=== PATIENT | female | born 1960 | race Caucasian/White ===

== ENCOUNTER 2018-11-19 03:35 | Inpatient (IN) | payer BC ==
--- NOTE | 2018-11-19 03:37 | ED Physician Documentation ---
PD HPI ABD PAIN - Stated complaint Stated Complaint: VOMITING,ABD PAIN - History obtained from History obtained from: Patient, Family - History of Present Illness Timing - onset: Yesterday Timing - details: Gradual onset, Waxing and waning Pain level now: 8 Quality: Pain Location: All over / everywhere Radiation: Other (no radiation) Improved by: Other (no ameliorating factors) Worsened by: Moving, Palpation Associated symptoms: Nausea, Vomiting, Constipation. No: Fever, Diarrhea Similar symptoms before: Other (has had similar episode in the past but resolved without needing medical attention) Recently seen: Not recently seen - Additional information Additional information: c/o generalized abdominal pain since yesterday, waxing and waning but gradually progressing in severity and frequency of episodes and becoming associated with increasing nausea and vomiting. she has not had BM x 2 days (unusual for her). Review of Systems Constitutional: reports: Reviewed and negative Eyes: reports: Reviewed and negative Ears: reports: Reviewed and negative Nose: reports: Reviewed and negative Throat: reports: Reviewed and negative Cardiac: reports: Reviewed and negative Respiratory: reports: Reviewed and negative GI: reports: Abdominal Pain, Nausea, Vomiting, Constipation. denies: Diarrhea : denies: Dysuria, Frequency Skin: reports: Reviewed and negative Musculoskeletal: reports: Reviewed and negative Neurologic: reports: Reviewed and negative PD PAST MEDICAL HISTORY - Past Medical History Past Medical History: Yes Other Past Medical History: colon CA - Past Surgical History Past Surgical History: Yes General: Cholecystectomy, Appendectomy, Bowel surgery, Liver surgery - Present Medications Home Medications: Ambulatory Orders Medication Instructions Recorded Confirmed No Known Home Medications 11/19/18 11/19/18 - Allergies Allergies/Adverse Reactions: Allergies Allergy/AdvReac Type Severity Reaction Status Date / Time No Known Drug Allergies Allergy Verified 11/19/18 03:43 - Living Situation Living Situation: reports: With spouse/s.o. Living Arrangement: reports: At home - Social History Does the pt smoke?: No PD ED PE NORMAL - Vitals Vital signs reviewed: Yes - General General: Alert and oriented X 3, Well developed/nourished, Other (obvious painful distress) - HEENT HEENT: Other (tacky/pasty mucous membranes) - Neck Neck: Supple, no meningeal sign - Cardiac Cardiac: RRR, No murmur - Respiratory Respiratory: No respiratory distress, Clear bilaterally - Abdomen Abdomen: Normal bowel sounds, Soft, Non distended, Other (mild/moderate TTP periumbilical region without rebound or guarding) - Derm Derm: Normal color - Extremities Extremities: No edema Results - Vitals Vitals: Vital Signs - 24 hr 11/19/18 11/19/18 11/19/18 03:41 03:56 04:28 Temperature 36.6 C Heart Rate 76 70 77 Respiratory 18 20 18 Rate Blood Pressure 129/76 139/84 H 143/94 H O2 Saturation 99 94 100 11/19/18 11/19/18 11/19/18 04:40 04:43 04:50 Temperature Heart Rate 74 77 Respiratory 16 16 Rate Blood Pressure 142/84 H O2 Saturation 88 L 100 100 Oxygen O2 Source Nasal cannula - Labs Labs: Laboratory Tests 11/19/18 11/19/18 03:40 03:40 WBC 10.8 RBC 4.95 Hgb 13.8 Hct 42.5 MCV 85.9 MCH 27.9 MCHC 32.5 RDW 13.5 Plt Count 233 MPV 11.0 H Neut # (Auto) 9.4 H Lymph # (Auto) 1.[address] [place] # (Auto) 0.2 Eos # (Auto) 0.0 Baso # (Auto) 0.0 Absolute Nucleated RBC 0.00 Nucleated RBC % 0.0 Sodium 141 Potassium 3.9 Chloride 101 Carbon Dioxide 25 Anion Gap 15.0 H BUN 17 Creatinine 0.9 Estimated GFR (MDRD) 65 L Glucose 207 H Calcium 9.7 Total Bilirubin 1.0 AST 26 ALT 19 Alkaline Phosphatase 57 Total Protein 6.8 Albumin 4.3 Globulin 2.5 Albumin/Globulin Ratio 1.7 Lipase 24 - Rads (name of study) CT A/P Radiology: Prelim report reviewed, See rad report PD MEDICAL DECISION MAKING - ED course Complexity details: reviewed results, considered differential, d/w patient, d/w family ED course: D/W Dr. Andersen, recommends admit to hospitalist service and they can consult surgical service. D/W Dr. Toledo, accpets admission. I discussed this plan with patient and spouse (present in ED at bedside) and they are comfortable with this plan. Departure - Departure Disposition: [facility] DC/Xfer Clinical Impression: Small bowel obstruction Condition: Good Discharge Date/Time: 11/19/18 05:45
[2018-11-19] MEDS ORDERED: SODIUM CHLORIDE 0.9% 1,000 ML IV STA ×2 (03:49→04:30)
[2018-11-19] MEDS ORDERED: ONDANSETRON 4 MG/2 ML VIAL IVP STA ×2 (03:49→05:46)
[2018-11-19] MEDS ORDERED: MORPHINE 2 MG/ML CARPUJECT IVP STA ×2 (03:49→04:08)
[2018-11-19 03:56] LABS: BASOPHILS % (AUTO) 0.4 %; HGB - HEMOGLOBIN 13.8 g/dL (12.0-16.0); LYMPHOCYTES % (AUTO) 9.6 %; MEAN CORPUSCULAR HEMOGLOBIN 27.9 pg (27.0-31.0); MEAN CORPUSCULAR HGB CONC 32.5 g/dL (32.0-36.0); MEAN CORPUSCULAR VOLUME 85.9 fL (81.0-99.0); MONOCYTES # (AUTO) 0.2 10^3/uL (0.0-1.0); MONOCYTES % (AUTO) 2.2 %; NEUTROPHILS # (AUTO) 9.4 10^3/uL (1.5-6.6); NEUTROPHILS % (AUTO) 87.4 %; PLT - PLATELET COUNT 233 10^3/uL (130-450); RED BLOOD COUNT 4.95 10^6/uL (4.20-5.40); RED CELL DISTRIBUTION WIDTH 13.5 % (12.0-15.0); WHITE BLOOD COUNT 10.8 x10^3/uL (4.8-10.8)
[2018-11-19 04:05] LABS: ALBUMIN 4.3 g/dL (3.2-5.5); ALBUMIN/GLOBULIN RATIO 1.7 (1.0-2.2); CALCIUM 9.7 mg/dL (8.5-10.3); CREATININE 0.9 mg/dL (0.4-1.0); TOTAL PROTEIN 6.8 g/dL (6.7-8.2)
[2018-11-19] MEDS ORDERED: IOVERSOL 320 100 ML VIAL IVP ONE ×2 (04:12→04:38)
[2018-11-19] MEDS ORDERED: MORPHINE 2 MG/ML CARPUJECT ONE (04:18)
[2018-11-19] MEDS ORDERED: HYDROmorphone 1 MG/ML CARPUJECT IVP STA (04:30)
--- NOTE | 2018-11-19 04:42 | CT Report ---
Reason: abd. pain Procedure Date: 11/19/2018 Accession Number: [id number] / [id number] Procedure: CT - Abdomen/Pelvis W CPT Code: FULL RESULT: EXAM: CT ABDOMEN AND PELVIS EXAM DATE: 11/19/2018 04:29 AM. CLINICAL HISTORY: Abd. pain. COMPARISONS: None. TECHNIQUE: Routine helical CT imaging was performed through the abdomen and pelvis. IV contrast: OPTI 320 100ML. Enteric contrast: No. Reconstructions: Coronal and sagittal. In accordance with CT protocol optimization, one or more of the following dose reduction techniques were utilized for this exam: automated exposure control, adjustment of mA and/or KV based on patient size, or use of iterative reconstructive technique. FINDINGS: Lung Bases: Unremarkable. Liver: Postoperative changes. No intrahepatic biliary dilatation. Gallbladder/Bile Ducts: Postoperative changes of cholecystectomy. No common duct dilation. Spleen: Normal. Pancreas: Normal. Adrenal Glands: Normal. Kidneys: Normal. No masses or hydronephrosis. Peritoneal Cavity/Bowel: Postoperative changes in the distal colon and small bowel. Dilated mid small bowel loops, with an abrupt transition in the right lower quadrant, suggestive of mechanical obstruction. Pelvic Organs: Small amount of free fluid in the pelvis. No pelvic adenopathy. Vasculature: No aneurysms or other significant abnormality. Bones: No significant abnormality. Other: None. IMPRESSION: Postoperative changes of previous partial liver resection, cholecystectomy, and bowel surgery. Dilated mid small bowel loops, with an abrupt transition in the right lower quadrant, suggestive of mechanical obstruction. Small amount of free fluid in the pelvis. RADIA
--- NOTE | 2018-11-19 05:38 | HISTORY & PHYSICAL EXAMINATION ---
Chief Complaint - Chief Complaint Chief Complaint: diffuse abd pain History of Present Illness - Admitted From Admitted From:: [facility] ED - History Obtained From Records Reviewed: yes History obtained from: patient - History of Present Illness HPI Comment/Other: Patient seen and examined on 11/19/18 at 05:15 am. Patient is a 58 y/o female with history of Stage IV colon cancer with metastasis to the liver 5yr ago s/p surgery, who presented with diffuse abd pain which started yesterday and steadily got worse. She had a protein bar sometime after onset but has since vomited everything. She has not had a bowel movement or passed gas. She denies chest pain or SUSAN. In the ED work up included a CT of the abd/pelvis which showed a SBO with a transition point. As a result she is being admitted for further management. History - Past Medical History Cardiovascular: reports: None Respiratory: reports: None Neuro: reports: None Endocrine/Autoimmune: reports: None GI: reports: Other PILOT SUBMERSIBLE: reports: None : reports: None, Other (colon cancer with mets to liver. s/p resection) HEENT: reports: None Psych: reports: None Musculoskeletal: reports: None Derm: reports: None MRSA Hx?: No - Past Surgical History General: reports: Cholecystectomy, Appendectomy, Bowel surgery (colon mass rection), Liver surgery, Other HEENT: reports: Tonsil/Adenoidectomy - Family & Social History Family History Comment/Other: Patient denied any significant family history Living arrangement: At home Living Situation: With spouse/s.o. Social History Notes: She denied tobacco or illit drug use. Occasionally uses alcohol - POLST Patient has POLST: No POLST Status: Full Code Meds/Allgy - Home Medications Home Medications: Ambulatory Orders Medication Instructions Recorded Confirmed No Known Home Medications 11/19/18 11/19/18 - Allergies Allergies/Adverse Reactions: Allergies Allergy/AdvReac Type Severity Reaction Status Date / Time No Known Drug Allergies Allergy Verified 11/19/18 03:43 Review of Systems - Constitutional Constitutional: reports: Chills, Poor appetite. denies: Fever - Eyes Eyes: denies: Blurred vision, Vision loss, Dipolpia - Ears, Nose & Throat Ears, Nose & Throat: denies: Nasal pain, Nasal discharge, Sore throat, Hoarseness - Cardiovascular Cariovascular: denies: Irregular heart rate, Chest pain, Edema, Lightheadedness, Syncope, Exertional dyspnea - Respiratory Respiratory: denies: Cough, Sputum production, Wheezing, SOB at rest, SOB with exertion - Gastrointestinal Gastrointestinal: reports: Abdominal pain, Nausea, Vomiting, Poor appetite. denies: Abdominal distention, Coffee grounds emesis, Reflux/heartburn - Genitourinary Genitourinary: denies: Dysuria, Frequency, Urgency, Hematuria, Incontinence, Flank pain - Musculoskeletal Musculoskeletal: denies: Muscle pain, Back pain, Muscle aches - Integumentary Integumentary: denies: Rash, Pruritis, Lesions - Neurological Neurological: denies: Focal weakness, Headache, Dizziness, Numbness - Psychiatric Psychiatric: denies: Depression, Anxiety - Endocrine Endocrine: denies: Polyuria, Polydypsia - Hematologic/Lymphatic Hematologic/Lymphatic: denies: Anemia, Bruising Prior Level of Functionality: She is independent of activities of daily living Exam - Vital Signs Vital Signs: Vital Signs x48h Temp Pulse Resp BP Pulse Ox 11/19/18 05:19 78 16 100 11/19/18 05:14 78 16 138/88 H 100 11/19/18 04:50 77 16 142/84 H 100 11/19/18 04:43 74 16 100 11/19/18 04:40 88 L 11/19/18 04:28 77 18 143/94 H 100 11/19/18 03:56 70 20 139/84 H 94 11/19/18 03:41 36.6 C 76 18 129/76 99 - Physical Exam General Appearance: positive: Severe distress Eyes Bilateral: positive: Normal inspection, PERRL, EOMI ENT: positive: ENT inspection nml Neck: positive: Nml inspection, No JVD, Trachea midline Respiratory: positive: Chest non-tender, No respiratory distress, Breath sounds nml. negative: Wheezes, Rales, Rhonchi Cardiovascular: positive: Regular rate & rhythm, No murmur Abdomen: positive: Tenderness, Abnml bowel sounds (hyper-resonant bowel sounds). negative: Guarding, Rebound Skin: positive: Color nml, No rash, Warm, Dry Extremities: positive: Non-tender, Full ROM, Nml appearance, Pedal edema (trace) Neurologic/Psychiatric: positive: Oriented x3, CN's nml (2-12), Motor nml, Sensation nml, Mood/affect nml Conclusion/Plan - Problem List (1) Small bowel obstruction Conclusion/Plan: NPO except meds. IV hydration with NS IV pain management. Zofran for nausea Dr Puneet Andersen (General Surgery) was contacted and will see the patient. (2) Hx of colon cancer, stage IV Conclusion/Plan: with mets to the liver s/p resection - Lab Results Fish Bones: 11/19/18 03:40 11/19/18 03:40 Core Measures - Anticipated LOS I expect patient to be DC'd or transferred within 96 hours.: Yes - DVT/VTE - Prophylaxis VTE/DVT Device ordered at admit?: Yes
[2018-11-19] MEDS: PANTOPRAZOLE 40 MG VIAL IVP SCH (06:23)
[2018-11-19] MEDS: HYDROmorphone 0.5 MG/0.5 ML SYRINGE IVP PRN ×6 (06:23→23:01)
[2018-11-19] MEDS: SODIUM CHLORIDE FLUSH 0.9% 10 ML SYRINGE IVP PRN ×3 (06:24→20:55)
[2018-11-19] MEDS: SODIUM CHLORIDE 0.9% 1,000 ML IV SCH ×3 (07:00→20:12)
[2018-11-19] MEDS: SODIUM CHLORIDE FLUSH 0.9% 10 ML SYRINGE IVP SCH ×2 (08:06→16:50)
[2018-11-19] MEDS: PROCHLORPERAZINE 10 MG/2 ML VIAL IVP PRN ×4 (08:10→20:55)
--- NOTE | 2018-11-19 08:54 | DISCHARGE SUMMARY ---
"Discharge Summary Admit Date: 11/19/18 Discharge Date: 11/19/18 Discharging Provider: Dr. Santos Latham Code Status: Attempt Resuscitation Condition at Discharge: Stable Discharge Disposition: 02 Transfer Acute Care Hosp Discharge Facility Name: [facility] - DIAGNOSES Admission Diagnoses: Small bowel obstruction History of Colon cancer, stage IV Discharge Diagnoses with Status of Each Condition: Small bowel obstruction - not improving History of Colon cancer, Stage IV - stable - HPI History of Present Illness: H&P per Dr. Toledo on 11/19/18: Patient is a 58 y/o female with history of Stage IV colon cancer with metastasis to the liver 5yr ago s/p surgery, who presented with diffuse abd pain which started yesterday and steadily got worse. She had a protein bar sometime after onset but has since vomited everything. She has not had a bowel movement or passed gas. She denies chest pain or SUSAN. In the ED work up included a CT of the abd/pelvis which showed a SBO with a francis sition point. As a result she is being admitted for further management. - CONSULTS | PROCEDURES Procedures: CT Abdomen/Pelvis - HOSPITAL COURSE Hospital Course: The patient was admitted for small bowel obstruction and treated with anti- emetics, IV opiates. She continued to have nausea/emesis and NG tube was placed to intermittent suction. Family was concerned regarding the bowel obstruction and her history of colon cancer and multiple abdominal surgeries. She had received her prior care at [facility] in [place], [place] and we were asked to contact them for possible transfer given that her Oncologist and prior abdominal surgeries were performed at that hospital. Transfer was felt to be warranted given her medical history and prior multiple abdominal interventions. [facility] was contacted and the patient was accepted for transfer. - ALLERGIES Allergies/Adverse Reactions: Allergies Allergy/AdvReac Type Severity Reaction Status Date / Time No Known Drug Allergies Allergy Verified 11/19/18 03:43 - MEDICATIONS Home Medications: Ambulatory Orders Medication Instructions Recorded Confirmed No Known Home Medications 11/19/18 11/19/18 Home Medications Other | Comments: Active Medications Hydromorphone HCl (Dilaudid Inj Syringe) 0.5 mg IVP Q2HR PRN PRN Reason: Pain 8 to 10 Last Admin: 11/19/18 06:23 Dose: 0.5 mg Sodium Chloride (Normal Saline 0.9%) 1,000 mls @ 125 mls/hr IV .Q8H [facility] Last Admin: 11/19/18 07:00 Dose: 125 mls/hr Ondansetron HCl (Zofran Inj) 4 mg IVP Q6HR PRN PRN Reason: Nausea / Vomiting Pantoprazole Sodium (Protonix) 40 mg IVP QDAC [facility] Last Admin: 11/19/18 06:23 Dose: 40 mg Prochlorperazine Edisylate (Compazine Inj) 10 mg IVP Q4HR PRN PRN Reason: Nausea / Vomiting Last Admin: 11/19/18 08:10 Dose: 10 mg Sodium Chloride (Normal Saline Flush 0.9%) 10 ml IVP PRN PRN PRN Reason: NEEDED PER PROVIDER ORDERS Last Admin: 11/19/18 06:24 Dose: 10 ml Sodium Chloride (Normal Saline Flush 0.9%) 10 ml IVP 0100,0900,1700 [facility] Last Admin: 11/19/18 08:06 Dose: Not Given No Known Home Medications 11/19/18 - PHYSICAL EXAM AT DISCHARGE General Appearance: positive: Alert, Mild distress, Lethargic Eyes Bilateral: positive: Normal inspection ENT: positive: Other (NG tube in place) Neck: positive: Nml inspection Respiratory: positive: No respiratory distress, Breath sounds nml Cardiovascular: positive: Regular rate & rhythm, No murmur Abdomen: positive: No distention, Tenderness, Abnml bowel sounds (Hypoactive). negative: Guarding, Rebound Skin: positive: Color nml, No rash, Warm, Dry Extremities: positive: Non-tender Neurologic/Psychiatric: positive: Oriented x3, Motor nml. negative: Disoriented to person, Disoriented to time - LABS Result Diagrams: 11/19/18 03:40 11/19/18 03:40 - DIAGNOSTIC IMAGING Diagnostic Imaging Results: Final report reviewed - QUALITY (Female Hip Fx Only) Was patient sent home on osteoporosis medication?: No - TIME SPENT Time Spent in Discharge (Minutes): 40"
[2018-11-19] MEDS ORDERED: POLYETHYLENE GLYCOL 3350 17 GM PACKET PO SCH (09:00)
--- NOTE | 2018-11-19 09:10 | CONSULTATION NOTE ---
Referring Provider Name of Referring Provider:: Dr. Latham Consult Date: 11/19/18 Chief Complaint - Chief Complaint Chief Complaint: abd pain, N, V History of Present Illness - Admitted From Admitted From:: ER - History Obtained From Records Reviewed: yes History obtained from: pt, family, records Exam Limitations: none - History of Present Illness HPI Comment/Other: 58 yo female with 24 hour hx of progressively worsening periumbilical crampy abd pains associated with repeated N/V and absence of passage of flatus or stool per rectum. She reports a milder similar episode approximately 1 yr ago with spontaneous resolution of sx over several hours. She has a hx of Stage 4 colorectal cancer, s/p low anterior resection with diverting ileostomy approximately 5 yrs ago, surgery performed in [place], with subsequent ileostomy closure, subsequent liver metastasis treated with partial hepatectomy and chemotherapy, followed regularly by oncology in [place], where she resides, and has been thought to be SHREYA. She does report approximately 10# wt loss over the past several months however that has been unintentional. No prior hospitalizations for SBO. She is also s/p cholecystectomy and appendectomy. Evaluation in the ER included CT abd/pelvis which showed evidence of the prior mentioned surgical procedures, dilated proximal small bowel with transition zone in pelvis involving the distal small bowel, with decrompressed small and large bowel distally; no radiographic evidence of recurrent malignancy, closed loop obstruction, pneumoperitoneum or other significant pathology. She was admitted and surgical consultation was requested. No hx melena, hematochezia, fever, chills, hematemesis, diarrhea. History - Past Medical History Cardiovascular: reports: None Respiratory: reports: None Neuro: reports: None Endocrine/Autoimmune: reports: None GI: reports: Other PAROLE OR PROBATION OFFICER: reports: None : reports: None, Other HEENT: reports: None Psych: reports: None Musculoskeletal: reports: None Derm: reports: None MRSA Hx?: No Other Past Medical History: colon CA - Past Surgical History General: reports: Cholecystectomy, Appendectomy, Bowel surgery (low anterior resection, ileostomy, subsequent take down, ), Liver surgery (partial resection for liver met(s)) HEENT: reports: Tonsil/Adenoidectomy - Family & Social History Family History Comment/Other: Patient denied any significant family history Living arrangement: At home Living Situation: With spouse/s.o. Social History Notes: She denied tobacco or illit drug use. Occasionally uses alcohol - Substance History Use: Uses substance without health or social issues: Alcohol (occasional glass of wine) - POLST Patient has POLST: No POLST Status: Full Code Meds/Allgy - Home Medications Home Medications: Ambulatory Orders Medication Instructions Recorded Confirmed No Known Home Medications 11/19/18 11/19/18 - Allergies Allergies/Adverse Reactions: Allergies Allergy/AdvReac Type Severity Reaction Status Date / Time No Known Drug Allergies Allergy Verified 11/19/18 03:43 Review of Systems - Constitutional Constitutional: reports: Weight loss. denies: Fever, Chills - Gastrointestinal Gastrointestinal: reports: Abdominal pain, Change in bowel habits, Nausea, Vomiting. denies: Diarrhea, Rectal bleeding, Black stools, Bloody stools, Coffee grounds emesis - Hematologic/Lymphatic Hematologic/Lymphatic: denies: Blood clots, Bleeding tendencies - All Other Systems All Other Systems: reports: Reviewed and negative Exam - Vital Signs Reviewed Vital Signs: Yes Vital Signs: Vital Signs x48h Temp Pulse Pulse Resp BP BP Pulse Ox 11/19/18 06:02 36.1 C L 77 16 145/83 H 100 11/19/18 05:19 78 16 100 11/19/18 05:14 78 16 138/88 H 100 11/19/18 04:50 77 16 142/84 H 100 11/19/18 04:43 74 16 100 11/19/18 04:40 88 L 11/19/18 04:28 77 18 143/94 H 100 11/19/18 03:56 70 20 139/84 H 94 11/19/18 03:41 36.6 C 76 18 129/76 99 - Physical Exam General Appearance: positive: Alert, Moderate distress, Anxious Eyes Bilateral: positive: No scleral icterus ENT: positive: ENT inspection nml, Dry mucous membranes Neck: positive: Nml inspection, Thyroid nml, No JVD, Trachea midline. negative: Thyromegaly, Lymphadenopathy (R), Lymphadenopathy (L) Respiratory: positive: Chest non-tender, No respiratory distress, Breath sounds nml Cardiovascular: positive: Regular rate & rhythm, No murmur, No gallop Abdomen: positive: Tenderness (mild diffuse tenderness without guarding, rebound or peritoneal signs; no hernias, multiple surgical scars), Abnml bowel sounds (high pitched, tympanitic). negative: Guarding, Rebound, Hepatomegaly, Splenomegaly, Mass Back: positive: Nml inspection. negative: CVA tenderness (R), CVA tenderness (L) Skin: positive: Color nml, No rash, Warm, Dry Extremities: positive: Non-tender, No pedal edema. negative: Calf tenderness Neurologic/Psychiatric: positive: Oriented x3 Conclusion/Plan - Diagnosis Diagnosis: Small bowel obstruction, high grade, likely partial, with no evidence of complete SBO, closed loop or strangulation obstruction at present; likely due to adhesions but recurrent cancer can not be ruled out; mild volume depletion associated with same. Hx Stage 4 colorectal cancer; currently thought to be SHREYA s/p multimodality therapy. - Plan Plan: Agree with admission, bowel rest, IV fluids, analgesics, anti emetics; would insert NG tube and start gastrgraffin challenge test. Pt isn't sure she wishes to stay here for her care vs return to [place] where she lives and where her physicians are located. I am happy to assist with her care here for as long as she desires. Case discussed with pt, family and Dr. Latham. Thanks, - Lab Results Fish Bones: 11/19/18 03:40 11/19/18 03:40 Other Lab Results: LFTs nl - Diagnostic Imaging Results Diagnostic Imaging Results: positive: Final report reviewed, Read independently Diagnostic Imaging Results Comments: See HPI
[2018-11-19] MEDS ORDERED: DIATR MEGLU/DIATRIZOATE SODIUM 120 ML BOTTLE PO ONE (09:17)
[2018-11-19] MEDS: ONDANSETRON 4 MG/2 ML VIAL IVP PRN ×2 (09:30→15:34)
--- NOTE | 2018-11-19 11:16 | XRAY Report ---
Reason: SBO Procedure Date: 11/19/2018 Accession Number: [id number] / [id number] Procedure: XR - No-Charge 1V Abdomen CPT Code: 45855 FULL RESULT: EXAM: ABDOMEN RADIOGRAPHY EXAM DATE: 11/19/2018 09:37 AM. CLINICAL HISTORY: SBO. Bar Captain view for SBFT challenge panel. COMPARISON: ABDOMEN/PELVIS W/ 11/19/2018 4:20 AM. TECHNIQUE: 2 views. FINDINGS: Lung Bases: Unremarkable. Borderline heart size. Bowel Gas Pattern: Multiple mildly to moderately distended loops of small bowel in the left abdomen, may reflect mechanical obstruction. Free Air: None. Other: Right upper quadrant surgical clips. Surgical clip at the right lower abdomen. Contrast from a prior exam in the moderately distended urinary bladder. Enteric tube appears to be looped and terminate in the distal esophagus. IMPRESSION: 1. Small bowel distention, may reflect mechanical obstruction. 2. Enteric tube appears to be looped and terminate in the distal esophagus. RADIA
--- NOTE | 2018-11-19 11:56 | XRAY Report ---
Reason: NG tube placement Procedure Date: 11/19/2018 Accession Number: [id number] / [id number] Procedure: XR - Abdomen 1 View X-Ray CPT Code: 14070 FULL RESULT: EXAM: ABDOMEN RADIOGRAPHY EXAM DATE: 11/19/2018 10:50 AM. CLINICAL HISTORY: Nasogastric tube placement. COMPARISON: NO CHARGE 1V ABDOMEN 11/19/2018 9:37 AM. TECHNIQUE: 1 view. FINDINGS: Bowel Gas Pattern: Within normal limits. No dilated loops. Other: A nasogastric tube has been repositioned but still is kinked near the level of the side-port with tip curving back upon itself within the distal esophagus. The distal portion of the tube is now 4.8 cm above the gastroesophageal junction. Surgical clips overlie the right upper quadrant. IMPRESSION: Nasogastric tube again coiled within distal esophagus 4.8 cm above GE junction. Suggest complete pull back of tube and replacement. RADIA
--- NOTE | 2018-11-19 12:20 | XRAY Report ---
Reason: New NG tube Procedure Date: 11/19/2018 Accession Number: [id number] / [id number] Procedure: XR - Abdomen 1 View X-Ray CPT Code: 38604 FULL RESULT: EXAM: ABDOMEN RADIOGRAPHY EXAM DATE: 11/19/2018 11:44 AM. CLINICAL HISTORY: New NG tube. COMPARISON: Abdomen radiograph from 11/19/[address] of the abdomen and pelvis from 11/19/2018. TECHNIQUE: 1 view. FINDINGS: Bowel Gas Pattern: There are dilated small bowel loops in the left abdomen, measuring up to 4 cm. Other: Enteric tube terminates in the proximal stomach. However, side port is in the distal esophagus. Visualized portions of the lung bases are clear. There are surgical clips overlying the epigastrium and right upper abdomen. IMPRESSION: 1. Enteric tube terminates in the proximal stomach. However, side port is in the distal esophagus. Recommend advancing at least 7 cm to ensure intragastric positioning. 2. Dilated small bowel in the left abdomen, compatible with small bowel obstruction seen on CT. CEDRICK The call report notification system was initiated by Dr. John Guerrero at 12:16 PM on 11/19/2018. ADDENDUM: 11/19/18 12:21 The above call report findings were discussed with Dr. Santos Latham by Dr. John Guerrero at 12:21 PM on 11/19/2018.
--- NOTE | 2018-11-19 13:57 | XRAY Report ---
Reason: NG tube readjustment Procedure Date: 11/19/2018 Accession Number: [id number] / [id number] Procedure: XR - Abdomen 1 View X-Ray CPT Code: 21032 FULL RESULT: EXAM: ABDOMEN RADIOGRAPHY EXAM DATE: 11/19/2018 11:27 AM. CLINICAL HISTORY: Nasogastric tube readjustment. COMPARISON: ABDOMEN 1 VIEW 11/19/2018 10:38 AM. TECHNIQUE: 1 view. FINDINGS: Bowel Gas Pattern: A loop of bowel in the left midabdomen is mildly prominent measuring 3.5 cm, increased since last exam slightly. The gastric bubble is within normal limits. Surgical clips overlie the right upper quadrant. Other: Nasogastric tube has been pulled back but remains kinked distally with the tip coiled back upon itself by 6.2 cm. The inferior most portion of the tube now lies 14 cm above the GE junction from approximate 5 cm previously. IMPRESSION: 1. Nasogastric tube remains looped back upon itself and has been pulled back into the mid esophagus. Suggest complete removal of the nasogastric tube to remove the kink and replacement. 2. Mildly prominent left mid abdominal small bowel loops measuring up to 3.5 cm. RADIA
[2018-11-19 14:16] LABS: BILIRUBIN,URINE NEGATIVE (NEGATIVE); GLUCOSE, URINE (UA) NEGATIVE (NEGATIVE); KETONES,URINE (UA) 15 mg/dL (NEGATIVE); LEUKOCYTE ESTERASE, URINE NEGATIVE (NEGATIVE); NITRITE,URINE NEGATIVE (NEGATIVE); OCCULT BLOOD,URINE TRACE-INTA (NEGATIVE); PH,URINE 6.5 PH (5.0-7.5); PROTEIN,URINE NEGATIVE (NEGATIVE); UROBILINOGEN,URINE 0.2 (NORMAL) E.U./dL (NORMAL)
[2018-11-19 14:18] LABS: CLARITY,URINE CLEAR (CLEAR)
--- NOTE | 2018-11-19 15:02 | XRAY Report ---
Reason: NG verification Procedure Date: 11/19/2018 Accession Number: [id number] / [id number] Procedure: XR - Abdomen 1 View X-Ray CPT Code: 64130 FULL RESULT: EXAM: ABDOMEN RADIOGRAPHY EXAM DATE: 11/19/2018 02:42 PM. CLINICAL HISTORY: NG verification. COMPARISON: ABDOMEN 1 VIEW 11/19/2018 11:24 AM. TECHNIQUE: 1 view. FINDINGS: Bowel Gas Pattern: Mildly dilated gas filled small bowel loops present in the left mid to lower abdomen measuring up to 3.7 cm. The colon is within normal limits. Other: The nasogastric tube tip and side-port has been advanced into the mid stomach successfully. IMPRESSION: 1. Nasogastric tube in satisfactory position in the mid stomach. 2. Mildly distended small bowel loops in the left abdomen again present. RADIA
--- NOTE | 2018-11-19 16:37 | XRAY Report ---
Reason: SBO, SBFT challenge panel Procedure Date: 11/19/2018 Accession Number: [id number] / [id number] Procedure: XR - No-Charge 1V Abdomen CPT Code: 86185 FULL RESULT: EXAM: ABDOMEN RADIOGRAPHY EXAM DATE: 11/19/2018 03:40 PM. CLINICAL HISTORY: SBO, SBFT challenge panel. COMPARISON: ABDOMEN 1 VIEW 11/19/2018 2:24 PM. TECHNIQUE: 2 views. FINDINGS: Lung Bases: Unremarkable. Bowel Gas Pattern: Contrast is present in the stomach and duodenal sweep. There are multiple nonopacified loops of moderately dilated midabdominal small bowel similar to prior. Free Air: None. Other: Right upper and right lower quadrant and pelvic surgical clips. Contrast from a prior exam in the urinary bladder. IMPRESSION: 1. Persistent small bowel distention as before. Contrast in the stomach and duodenum. RADIA
[2018-11-19] MEDS ORDERED: PROMETHAZINE INJ 25 MG in SODIUM CHLORIDE 0.9% 50 ML IV PRN (17:20)
[2018-11-19] MEDS ORDERED: SCOPOLAMINE PATCH TOP SCH (18:00)
[2018-11-19] MEDS ORDERED: BENZOCAINE/MENTHOL LOZENGE MM PRN (18:19)
[2018-11-19] MEDS: KETOROLAC 30 MG/ML VIAL IVP PRN (19:45)
[2018-11-19] MEDS: CHLORHEXIDINE GLUCONATE 15 ML UDC PO SCH (20:23)
--- NOTE | 2018-11-19 21:41 | XRAY Report ---
Reason: SBO, SBFT CHALLENGE PANEL Procedure Date: 11/19/2018 Accession Number: [id number] / [id number] Procedure: XR - No-Charge 1V Abdomen CPT Code: 77284 FULL RESULT: EXAM: ABDOMEN RADIOGRAPHY EXAM DATE: 11/19/2018 07:52 PM. CLINICAL HISTORY: Gastrografin challenge. Four hour view. COMPARISON: NO CHARGE 1V ABDOMEN 11/19/2018 3:24 PM. TECHNIQUE: 1 view. FINDINGS: Bowel Gas Pattern: Oral contrast in the stomach. No other contrast identified, likely diluted in fluid-filled bowel. Mild small bowel dilatation persists. Other: None. IMPRESSION: 1. Mild small bowel dilatation persists. 2. Oral contrast in the stomach and likely in fluid-filled upper abdominal small bowel loops. RADIA
[2018-11-20] MEDS: KETOROLAC 30 MG/ML VIAL IVP PRN ×3 (00:20→12:11)
[2018-11-20] MEDS: SODIUM CHLORIDE FLUSH 0.9% 10 ML SYRINGE IVP SCH ×3 (00:59→16:59)
[2018-11-20] MEDS: ONDANSETRON 4 MG/2 ML VIAL IVP PRN ×3 (01:07→17:05)
[2018-11-20] MEDS: HYDROmorphone 0.5 MG/0.5 ML SYRINGE IVP PRN ×4 (01:07→14:37)
[2018-11-20] MEDS: SODIUM CHLORIDE FLUSH 0.9% 10 ML SYRINGE IVP PRN ×4 (01:07→17:52)
[2018-11-20] MEDS: SODIUM CHLORIDE 0.9% 1,000 ML IV SCH (04:22)
[2018-11-20 04:46] LABS: BASOPHILS % (AUTO) 0.2 %; EOSINOPHILS % (AUTO) 0.1 %; HGB - HEMOGLOBIN 12.2 g/dL (12.0-16.0); LYMPHOCYTES # (AUTO) 1.2 10^3/uL (1.5-3.5); LYMPHOCYTES % (AUTO) 12.2 %; MEAN CORPUSCULAR HEMOGLOBIN 27.4 pg (27.0-31.0); MEAN CORPUSCULAR HGB CONC 31.3 g/dL (32.0-36.0); MEAN CORPUSCULAR VOLUME 87.6 fL (81.0-99.0); MEAN PLATELET VOLUME 10.1 fL (7.9-10.8); MONOCYTES # (AUTO) 0.8 10^3/uL (0.0-1.0); NEUTROPHILS % (AUTO) 79.1 %; PLT - PLATELET COUNT 185 10^3/uL (130-450); RED BLOOD COUNT 4.45 10^6/uL (4.20-5.40); RED CELL DISTRIBUTION WIDTH 13.8 % (12.0-15.0); WHITE BLOOD COUNT 10.1 x10^3/uL (4.8-10.8)
[2018-11-20 04:55] LABS: CREATININE 0.8 mg/dL (0.4-1.0)
--- NOTE | 2018-11-20 04:57 | XRAY Report ---
Reason: post gastrogrfin Procedure Date: 11/20/2018 Accession Number: [id number] / [id number] Procedure: XR - No-Charge 1V Abdomen CPT Code: 26079 FULL RESULT: EXAM: ABDOMEN RADIOGRAPHY EXAM DATE: 11/20/2018 04:48 AM. CLINICAL HISTORY: Post gastrogrfin. COMPARISON: NO CHARGE 1V ABDOMEN 11/19/2018 7:07 PM NO CHARGE 1V ABDOMEN 11/19/2018 3:24 PM ABDOMEN 1 VIEW 11/19/2018 2:24 PM. TECHNIQUE: 1 view. FINDINGS: Bowel Gas Pattern: Persistent gaseous dilatation of small bowel loops. No oral contrast visualized on the current examination. Other: Contrast in the urinary bladder from previous CT. Nasogastric tube terminating in the stomach. Postoperative changes, stable. IMPRESSION: No evident oral contrast present. RADIA
[2018-11-20] MEDS: PROCHLORPERAZINE 10 MG/2 ML VIAL IVP PRN ×2 (06:12→18:47)
[2018-11-20] MEDS: PANTOPRAZOLE 40 MG VIAL IVP SCH (06:13)
--- NOTE | 2018-11-20 07:22 | PROVIDER PROGRESS NOTE ---
Assessment/Plan - Problem List (1) Small bowel obstruction Assessment/Plan: Clinically somewhat improved; high grade partial SBO most likely due to adhesions; appears oversedated at present; Rec: see orders, adjust fluids, adjust meds, ow continue present management; consider formal gastrograffin SBFT in am if not markedly improved tomorrow. - Current Meds Current Meds: Current Medications Generic Name Dose Route Start Last Admin Trade Name Freq PRN Reason Stop Dose Admin Chlorhexidine Gluconate 15 ml 11/19/18 21:00 11/19/18 20:23 Peridex PO 15 ml BID BÁRBARA Administration Hydromorphone HCl 0.5 mg 11/19/18 05:10 11/20/18 06:12 Dilaudid Inj Syringe IVP 0.5 mg Q2HR PRN Administration Pain 8 to 10 Sodium Chloride 1,000 mls @ 125 mls/hr 11/19/18 06:00 11/20/18 04:22 Normal Saline 0.9% IV 125 mls/hr .Q8H BÁRBARA Administration Ketorolac Tromethamine 30 mg 11/19/18 17:11 11/20/18 04:30 Toradol Inj (30mg) IVP 11/24/18 17:10 30 mg Q6HR PRN Administration PAIN Ondansetron HCl 4 mg 11/19/18 05:10 11/20/18 01:07 Zofran Inj IVP 4 mg Q6HR PRN Administration Nausea / Vomiting Pantoprazole Sodium 40 mg 11/19/18 07:00 11/20/18 06:13 Protonix IVP 40 mg QDAC BÁRBARA Administration Prochlorperazine Edisylate 10 mg 11/19/18 06:55 11/20/18 06:12 Compazine Inj IVP 10 mg Q4HR PRN Administration Nausea / Vomiting Scopolamine HBr 1 patch 11/19/18 18:00 11/19/18 18:25 Transderm-Scop TOP 1 patch Q3D BÁRBARA Administration Sodium Chloride 10 ml 11/19/18 05:10 11/20/18 06:13 Normal Saline Flush 0.9% IVP 10 ml PRN PRN Administration NEEDED PER PROVIDER ORDERS Sodium Chloride 10 ml 11/19/18 09:00 11/20/18 00:59 Normal Saline Flush 0.9% IVP Not Given 0100,0900,1700 BÁRBARA - Lab Result Fish Bone Diagrams: 11/20/18 04:40 11/20/18 04:40 - Diagnostic Imaging Results Diagnostic Imaging Results: Final report reviewed, Read independently Diagnostic Imaging Results Comments: gastrograffin challenge test at 15 hours shows no visible contrast in gi tract; decreased caliber of dilated small bowel; gas and stool in colon. - Additional Planning My Orders: My Active Orders 11/19/18 09:07 NG Tube Care [RC] Q4HR 11/19/18 09:17 SBFT Challenge Panel [XR] Urgent 11/19/18 18:19 Benzocaine/Menthol [Cepacol] 1 lozenge MM Q2HR PRN 11/19/18 21:00 Chlorhexidine [Peridex] 15 ml PO BID Plan Discussed with:: Patient Subjective - Subjective Patient Reports: Feeling Better (abd pain is decreased; occasional nausea no vomiting; no passage of flatus or stool), Abdominal Pain (less than yesterday), Nausea Objective Vital Signs: Vital Signs - 24 hr 11/19/18 11/19/18 11/19/18 11:15 13:00 15:46 Temperature 36.5 C 36.8 C 37.0 C Heart Rate [ 115 H 87 97 Brachial] Respiratory 15 17 16 Rate Blood Pressure 158/95 H 148/87 H 146/90 H [Right Brachial artery] O2 Saturation 97 96 97 11/19/18 11/19/18 11/20/18 20:17 20:32 00:12 Temperature 37.1 C 36.9 C Heart Rate [ 83 88 Brachial] Respiratory 16 16 Rate Blood Pressure 163/85 H 161/90 H 162/90 H [Right Brachial artery] O2 Saturation 96 96 11/20/18 04:25 Temperature 37.0 C Heart Rate [ 80 Brachial] Respiratory 17 Rate Blood Pressure 168/92 H [Right Brachial artery] O2 Saturation 96 Oxygen O2 Source Room air I&O (Last 24 Hrs): Intake and Output Totals x24h 11/18/18 11/19/18 11/20/18 23:59 23:59 23:59 Intake Total 3369.167 720.833 Output Total 1705 350 Balance 1664.167 370.833 NG output minimal since insertion; 150/8 hours; NG tube irrigated this am by me to assure patency; u.o. satisfactory 11/20/18 07:28 11/20/18 07:29 General: Oriented x3, No acute distress, Other (somewhat somnolent but awakens easily and becomes alert and oriented) HEENT: Mucous membr. moist/pink, Other (mild periorbital edema) Neck: No JVD Neuro: Alert Cardiovascular: Regular rate, Normal S1, No murmurs Respiratory: Chest non-tender, No respiratory distress, Breath sounds nml Abdomen: Soft (fullness in lower abdomen), No tenderness, No hepatospenomegaly, No masses, Other (hyperactive bowel tones) Extremities: No cyanosis, No edema, No tenderness/swelling - Results Results: Laboratory Results WBC 10.1 x10^3/uL (4.8-10.8) 11/20/18 04:40 RBC 4.45 10^6/uL (4.20-5.40) 11/20/18 04:40 Hgb 12.2 g/dL (12.0-16.0) 11/20/18 04:40 Hct 39.0 % (37.0-47.0) 11/20/18 04:40 MCV 87.6 fL (81.0-99.0) 11/20/18 04:40 MCH 27.4 pg (27.0-31.0) 11/20/18 04:40 MCHC 31.3 g/dL (32.0-36.0) L 11/20/18 04:40 RDW 13.8 % (12.0-15.0) 11/20/18 04:40 Plt Count 185 10^3/uL (130-450) 11/20/18 04:40 MPV 10.1 fL (7.9-10.8) 11/20/18 04:40 Neut # (Auto) 8.0 10^3/uL (1.5-6.6) H 11/20/18 04:40 Lymph # (Auto) 1.2 10^3/uL (1.5-3.5) L 11/20/18 04:40 [place] # (Auto) 0.8 10^3/uL (0.0-1.0) 11/20/18 04:40 Eos # (Auto) 0.0 10^3/uL (0.0-0.7) 11/20/18 04:40 Baso # (Auto) 0.0 10^3/uL (0.0-0.1) 11/20/18 04:40 Absolute Nucleated RBC 0.00 x10^3/uL 11/20/18 04:40 Nucleated RBC % 0.0 /100WBC 11/20/18 04:40 Sodium 140 mmol/L (135-145) 11/20/18 04:40 Potassium 4.0 mmol/L (3.5-5.0) 11/20/18 04:40 Chloride 104 mmol/L (101-111) 11/20/18 04:40 Carbon Dioxide 28 mmol/L (21-32) 11/20/18 04:40 Anion Gap 8.0 (6-13) 11/20/18 04:40 BUN 13 mg/dL (6-20) 11/20/18 04:40 Creatinine 0.8 mg/dL (0.4-1.0) 11/20/18 04:40 Estimated GFR (MDRD) 74 (>89) L 11/20/18 04:40 Glucose 123 mg/dL (70-100) H 11/20/18 04:40 Calcium 9.0 mg/dL (8.5-10.3) 11/20/18 04:40 Total Bilirubin 1.0 mg/dL (0.2-1.0) 11/19/18 03:40 AST 26 IU/L (10-42) 11/19/18 03:40 ALT 19 IU/L (10-60) 11/19/18 03:40 Alkaline Phosphatase 57 IU/L (42-121) 11/19/18 03:40 Total Protein 6.8 g/dL (6.7-8.2) 11/19/18 03:40 Albumin 4.3 g/dL (3.2-5.5) 11/19/18 03:40 Globulin 2.5 g/dL (2.1-4.2) 11/19/18 03:40 Albumin/Globulin Ratio 1.7 (1.0-2.2) 11/19/18 03:40 Lipase 24 U/L (22-51) 11/19/18 03:40 Urine Color YELLOW 11/19/18 12:02 Urine Clarity CLEAR (CLEAR) 11/19/18 12:02 Urine pH 6.5 PH (5.0-7.5) 11/19/18 12:02 Ur Specific [place] 1.010 (1.002-1.030) 11/19/18 12:02 Urine Protein NEGATIVE mg/dL (NEGATIVE) 11/19/18 12:02 Urine Glucose (UA) NEGATIVE mg/dL (NEGATIVE) 11/19/18 12:02 Urine Ketones 15 mg/dL (NEGATIVE) H 11/19/18 12:02 Urine Occult Blood TRACE-INTA (NEGATIVE) 11/19/18 12:02 Urine Nitrite NEGATIVE (NEGATIVE) 11/19/18 12:02 Urine Bilirubin NEGATIVE (NEGATIVE) 11/19/18 12:02 Urine Urobilinogen 0.2 (NORMAL) E.U./dL (NORMAL) 11/19/18 12:02 Ur Leukocyte Esterase NEGATIVE (NEGATIVE) 11/19/18 12:02 Ur Microscopic Review NOT INDICATED 11/19/18 12:02 Urine Culture Comments NOT INDICATED 11/19/18 12:02 ABX Reporting Has patient been on IV antibiotics over the past 48 hours?: No
[2018-11-20] MEDS: CHLORHEXIDINE GLUCONATE 15 ML UDC PO SCH ×2 (08:15→20:50)
[2018-11-20] MEDS: LACTATED RINGERS 1,000 ML IV SCH ×2 (08:16→17:32)
--- NOTE | 2018-11-20 10:31 | PROVIDER PROGRESS NOTE ---
Subjective - Prog Note Date Prog Note Date: 11/20/18 Prog Note Time: 10:29 - Subjective Pt reports feeling: Improved Subjective: She reports feeling a little better this morning. Still has some nausea but the episodes of emesis have decreased. Gastrografin study was completed yesterday. NG tube remains to suction and the patient is tolerating it. She has not passed gas or had a bowel movement. Denies chest pain and dyspnea. Current Medications - Current Medications Current Medications: Active Medications Chlorhexidine Gluconate (Peridex) 15 ml PO BID [facility] Last Admin: 11/20/18 08:15 Dose: 15 ml Hydromorphone HCl (Dilaudid Inj Syringe) 0.5 mg IVP Q2HR PRN PRN Reason: Pain 8 to 10 Last Admin: 11/20/18 06:12 Dose: 0.5 mg Lactated Ringer's (Lr) 1,000 mls @ 100 mls/hr IV .Q10H [facility] Last Admin: 11/20/18 08:16 Dose: 100 mls/hr Ketorolac Tromethamine (Toradol Inj (30mg)) 30 mg IVP Q6HR PRN PRN Reason: PAIN Stop: 11/24/18 17:10 Last Admin: 11/20/18 04:30 Dose: 30 mg Ondansetron HCl (Zofran Inj) 4 mg IVP Q6HR PRN PRN Reason: Nausea / Vomiting Last Admin: 11/20/18 08:15 Dose: 4 mg Pantoprazole Sodium (Protonix) 40 mg IVP QDAC [facility] Last Admin: 11/20/18 06:13 Dose: 40 mg Sodium Chloride (Normal Saline Flush 0.9%) 10 ml IVP PRN PRN PRN Reason: NEEDED PER PROVIDER ORDERS Last Admin: 11/20/18 06:13 Dose: 10 ml Sodium Chloride (Normal Saline Flush 0.9%) 10 ml IVP 0100,0900,1700 [facility] Last Admin: 11/20/18 08:15 Dose: 10 ml Throat Lozenges (Cepacol) 1 lozenge MM Q2HR PRN PRN Reason: Mouth Sore Pain No Known Home Medications 11/19/18 Objective - Vital Signs/Intake & Output Reviewed Vital Signs: Yes Vital Signs: Vital Signs x48h Temp Pulse Resp BP Pulse Ox 11/20/18 08:25 36.7 C 68 16 153/83 H 97 11/20/18 04:25 37.0 C 80 17 168/92 H 96 Intake & Output: Intake & Output 11/17/18 11/18/18 11/19/18 11/20/18 23:59 23:59 23:59 23:59 Intake Total 3369.167 1225.833 Output Total 1705 700 Balance 1664.167 525.833 - Objective General Appearance: positive: No acute distress, Lethargic, Other (Falls asleep easily while speaking to her) Eyes Bilateral: positive: Normal inspection ENT: positive: ENT inspection nml, Other (NG tube in place) Neck: positive: Nml inspection Respiratory: positive: No respiratory distress, Breath sounds nml. negative: Wheezes, Rales, Rhonchi Cardiovascular: positive: Regular rate & rhythm. negative: No murmur, Tachycardia, Bradycardia Abdomen: positive: Non-tender, No distention, Other (Hyperactie bowel sounds). negative: Tenderness Skin: positive: Color nml, No rash, Warm, Dry Extremities: positive: No pedal edema Neurologic/Psychiatric: positive: Oriented x3, Motor nml - Lab Results Fish Bones: 11/20/18 04:40 11/20/18 04:40 Other Labs: Lab Results x24hrs 11/20/18 11/20/18 11/20/18 Range/Units 07:37 04:40 04:40 WBC 10.1 (4.8-10.8) x10^3/uL RBC 4.45 (4.20-5.40) 10^6/uL Hgb 12.2 (12.0-16.0) g/dL Hct 39.0 (37.0-47.0) % MCV 87.6 (81.0-99.0) fL MCH 27.4 (27.0-31.0) pg MCHC 31.3 L (32.0-36.0) g/dL RDW 13.8 (12.0-15.0) % Plt Count 185 (130-450) 10^3/uL MPV 10.1 (7.9-10.8) fL Neut # (Auto) 8.0 H (1.5-6.6) 10^3/uL Lymph # (Auto) 1.2 L (1.5-3.5) 10^3/uL [place] # (Auto) 0.8 (0.0-1.0) 10^3/uL Eos # (Auto) 0.0 (0.0-0.7) 10^3/uL Baso # (Auto) 0.0 (0.0-0.1) 10^3/uL Absolute Nucleated RBC 0.00 x10^3/uL Nucleated RBC % 0.0 /100WBC Sodium 140 (135-145) mmol/L Potassium 4.0 (3.5-5.0) mmol/L Chloride 104 (101-111) mmol/L Carbon Dioxide 28 (21-32) mmol/L Anion Gap 8.0 (6-13) BUN 13 (6-20) mg/dL Creatinine 0.8 (0.4-1.0) mg/dL Estimated GFR (MDRD) 74 L (>89) Glucose 123 H (70-100) mg/dL Calcium 9.0 (8.5-10.3) mg/dL Carcinoembryonic Ag 1.5 ng/mL Urine Color Urine Clarity (CLEAR) Urine pH (5.0-7.5) PH Ur Specific [place] (1.002-1.030) Urine Protein (NEGATIVE) mg/dL Urine Glucose (UA) (NEGATIVE) mg/dL Urine Ketones (NEGATIVE) mg/dL Urine Occult Blood (NEGATIVE) Urine Nitrite (NEGATIVE) Urine Bilirubin (NEGATIVE) Urine Urobilinogen (NORMAL) E.U./dL Ur Leukocyte Esterase (NEGATIVE) Ur Microscopic Review Urine Culture Comments 11/19/18 Range/Units 12:02 WBC (4.8-10.8) x10^3/uL RBC (4.20-5.40) 10^6/uL Hgb (12.0-16.0) g/dL Hct (37.0-47.0) % MCV (81.0-99.0) fL MCH (27.0-31.0) pg MCHC (32.0-36.0) g/dL RDW (12.0-15.0) % Plt Count (130-450) 10^3/uL MPV (7.9-10.8) fL Neut # (Auto) (1.5-6.6) 10^3/uL Lymph # (Auto) (1.5-3.5) 10^3/uL [place] # (Auto) (0.0-1.0) 10^3/uL Eos # (Auto) (0.0-0.7) 10^3/uL Baso # (Auto) (0.0-0.1) 10^3/uL Absolute Nucleated RBC x10^3/uL Nucleated RBC % /100WBC Sodium (135-145) mmol/L Potassium (3.5-5.0) mmol/L Chloride (101-111) mmol/L Carbon Dioxide (21-32) mmol/L Anion Gap (6-13) BUN (6-20) mg/dL Creatinine (0.4-1.0) mg/dL Estimated GFR (MDRD) (>89) Glucose (70-100) mg/dL Calcium (8.5-10.3) mg/dL Carcinoembryonic Ag ng/mL Urine Color YELLOW Urine Clarity CLEAR (CLEAR) Urine pH 6.5 (5.0-7.5) PH Ur Specific [place] 1.010 (1.002-1.030) Urine Protein NEGATIVE (NEGATIVE) mg/dL Urine Glucose (UA) NEGATIVE (NEGATIVE) mg/dL Urine Ketones 15 H (NEGATIVE) mg/dL Urine Occult Blood TRACE-INTA (NEGATIVE) Urine Nitrite NEGATIVE (NEGATIVE) Urine Bilirubin NEGATIVE (NEGATIVE) Urine Urobilinogen 0.2 (NORMAL) (NORMAL) E.U./dL Ur Leukocyte Esterase NEGATIVE (NEGATIVE) Ur Microscopic Review NOT INDICATED Urine Culture Comments NOT INDICATED - Diagnostic Imaging Diagnostic Imaging Results: positive: Final report reviewed ABX Reporting Has patient been on IV antibiotics over the past 48 hours?: No Assessment/Plan - Problem List (1) Small bowel obstruction Impression: This is likely secondary to adhesions given her history of multiple abdominal yin rgeries. She appears to be clinically improving. Nausea and emesis have improved. NG tube remains in place to suction. Gastrografin study completed yesterday and no more contrast is visualized although there still appears to be dilated loops of bowel. - Continue IV antiemetics - Continue pain control with IV opiates and toradol - Continue IV fluids - NG tube to suction - NPO - She appears to be clinically improving and we will continue conservative management for the time being - General surgery is on board and appreciate their recommendations (2) Hx of colon cancer, stage IV Impression: She has history of stage IV colon cancer with metastasis to the liver. She underwent resection in the past. Family reports recent MRI of the abdomen which was negative. Stable. - Outpatient follow up
[2018-11-20] MEDS ORDERED: HYDROmorphone 0.5 MG/0.5 ML SYRINGE IVP STA (15:07)
[2018-11-20] MEDS ORDERED: hydrALAZINE INJ 20 MG/ML VIAL IVP ONE (16:25)
[2018-11-20] MEDS: ACETAMINOPHEN 1,000 MG/100 ML 100 ML IV SCH (16:59)
[2018-11-20] MEDS: HYDROmorphone 1 MG/ML CARPUJECT IVP PRN ×2 (17:51→21:48)
[2018-11-21] MEDS: SODIUM CHLORIDE FLUSH 0.9% 10 ML SYRINGE IVP SCH ×2 (00:19→00:49)
[2018-11-21] MEDS: HYDROmorphone 1 MG/ML CARPUJECT IVP PRN ×6 (00:19→11:56)
[2018-11-21] MEDS: ACETAMINOPHEN 1,000 MG/100 ML 100 ML IV SCH ×3 (00:30→11:38)
[2018-11-21] MEDS: KETOROLAC 30 MG/ML VIAL IVP PRN ×2 (00:30→06:39)
[2018-11-21] MEDS: PROCHLORPERAZINE 10 MG/2 ML VIAL IVP PRN ×3 (00:49→11:57)
[2018-11-21] MEDS: LACTATED RINGERS 1,000 ML IV SCH ×2 (03:34→11:42)
[2018-11-21 05:08] LABS: BASOPHILS % (AUTO) 0.2 %; LYMPHOCYTES # (AUTO) 0.9 10^3/uL (1.5-3.5); LYMPHOCYTES % (AUTO) 9.3 %; MEAN CORPUSCULAR HEMOGLOBIN 26.7 pg (27.0-31.0); MEAN CORPUSCULAR HGB CONC 31.1 g/dL (32.0-36.0); MONOCYTES # (AUTO) 0.9 10^3/uL (0.0-1.0); MONOCYTES % (AUTO) 8.7 %; NEUTROPHILS # (AUTO) 7.9 10^3/uL (1.5-6.6); NEUTROPHILS % (AUTO) 81.4 %; PLT - PLATELET COUNT 196 10^3/uL (130-450); RED BLOOD COUNT 4.49 10^6/uL (4.20-5.40); RED CELL DISTRIBUTION WIDTH 13.7 % (12.0-15.0); WHITE BLOOD COUNT 9.7 x10^3/uL (4.8-10.8)
[2018-11-21 05:22] LABS: CREATININE 0.7 mg/dL (0.4-1.0)
--- NOTE | 2018-11-21 05:45 | XRAY Report ---
Reason: f/u sbo Procedure Date: 11/21/2018 Accession Number: [id number] / [id number] Procedure: XR - Abdomen 2 View X-Ray CPT Code: 83804 FULL RESULT: EXAM: ABDOMEN RADIOGRAPHY EXAM DATE: 11/21/2018 05:34 AM. CLINICAL HISTORY: F/u sbo. COMPARISON: NO CHARGE 1V ABDOMEN 11/20/2018 4:26 AM. TECHNIQUE: 2 views. FINDINGS: Lung Bases: Unremarkable. Bowel Gas Pattern: Increasing gaseous distention of small bowel loops. Free Air: None. Other: Enteric tube terminating in the stomach. Stable postoperative changes. IMPRESSION: Increasing gaseous dilatation of small bowel loops. Enteric tube terminating in the stomach. RADIA
[2018-11-21] MEDS: PANTOPRAZOLE 40 MG VIAL IVP SCH (06:40)
--- NOTE | 2018-11-21 07:18 | PROVIDER PROGRESS NOTE ---
Assessment/Plan - Problem List (1) Small bowel obstruction Assessment/Plan: No significant improvement; persistent high grade partial SBO; Rec: exploratory laparotomy, lysis of adhesions. Pt wished to be transferred to [facility] in [place] for this procedure and further care as appropriate, where all her family and physicians are located. Discussed with hospitalilst, who will attempt to make arrangements for same. - Current Meds Current Meds: Current Medications Generic Name Dose Route Start Last Admin Trade Name Freq PRN Reason Stop Dose Admin Chlorhexidine Gluconate 15 ml 11/19/18 21:00 11/20/18 20:50 Peridex PO 15 ml BID BÁRBARA Administration Hydromorphone HCl 1 mg 11/20/18 15:07 11/21/18 05:04 Dilaudid Inj Carp IVP 1 mg Q2HR PRN Administration Pain 8 to 10 Lactated Ringer's 1,000 mls @ 100 mls/hr 11/20/18 08:00 11/21/18 03:34 Lr IV 100 mls/hr .Q10H BÁRBARA Administration Acetaminophen 100 mls @ 400 mls/hr 11/20/18 18:00 11/21/18 06:40 Ofirmev IV 400 mls/hr Q6HR BÁRBARA Administration Ketorolac Tromethamine 30 mg 11/19/18 17:11 11/21/18 06:39 Toradol Inj (30mg) IVP 11/24/18 17:10 30 mg Q6HR PRN Administration PAIN Ondansetron HCl 4 mg 11/19/18 05:10 11/20/18 17:05 Zofran Inj IVP 4 mg Q6HR PRN Administration Nausea / Vomiting Pantoprazole Sodium 40 mg 11/19/18 07:00 11/21/18 06:40 Protonix IVP 40 mg QDAC BÁRBARA Administration Prochlorperazine Edisylate 10 mg 11/20/18 18:00 11/21/18 00:49 Compazine Inj IVP 10 mg Q4HR PRN Administration Nausea / Vomiting Sodium Chloride 10 ml 11/19/18 05:10 11/20/18 17:52 Normal Saline Flush 0.9% IVP 10 ml PRN PRN Administration NEEDED PER PROVIDER ORDERS Sodium Chloride 10 ml 11/19/18 09:00 11/21/18 00:49 Normal Saline Flush 0.9% IVP 10 ml [id number],[id number],1700 BÁRBARA Administration - Lab Result Fish Bone Diagrams: 11/21/18 05:02 11/21/18 05:02 - Diagnostic Imaging Results Diagnostic Imaging Results: Final report reviewed, Read independently Diagnostic Imaging Results Comments: 2 view abd series this am: persistent, possibly worsening dilated loops of small bowel with air fluid levels, with minimal gas in colon, c/w high grade partial SBO. - Additional Planning Condition/Complexity: Stable (not improving) My Orders: My Active Orders 11/20/18 08:00 Lactated Ringers [Lr] 1,000 ml IV 100 mls/hr 11/21/18 09:00 Enoxaparin [Lovenox] 30 mg SUBQ DAILY Plan Discussed with:: Patient Time Spent: 15-30 minutes Subjective - Subjective Patient Reports: Abdominal Pain (worsening over night with crampy abdominal pains; no passage of flatus or stool; occasional nausea despite NG tube), Nausea Objective Vital Signs: Vital Signs - 24 hr 11/20/18 11/20/18 11/20/18 08:25 12:46 15:35 Temperature 36.7 C 36.6 C 37.0 C Heart Rate Heart Rate [ 68 69 77 Brachial] Respiratory 16 16 18 Rate Blood Pressure Blood Pressure 153/83 H 169/93 H 189/97 H [Right Brachial artery] O2 Saturation 97 96 95 11/20/18 11/20/18 11/20/18 15:54 16:00 16:15 Temperature Heart Rate Heart Rate [ Brachial] Respiratory Rate Blood Pressure Blood Pressure 182/92 H 179/89 H 184/94 H [Right Brachial artery] O2 Saturation 11/20/18 11/20/18 11/20/18 16:57 16:58 17:04 Temperature Heart Rate Heart Rate [ 71 Brachial] Respiratory Rate Blood Pressure 171/97 H Blood Pressure 171/97 H 177/93 H [Right Brachial artery] O2 Saturation 11/20/18 11/20/18 11/20/18 17:09 17:14 17:29 Temperature Heart Rate Heart Rate [ Brachial] Respiratory Rate Blood Pressure Blood Pressure 148/89 H 158/94 H 146/75 H [Right Brachial artery] O2 Saturation 11/20/18 11/20/18 11/20/18 17:44 17:59 20:49 Temperature 36.8 C Heart Rate Heart Rate [ 101 H Brachial] Respiratory 18 Rate Blood Pressure Blood Pressure 140/83 H 146/83 H 150/97 H [Right Brachial artery] O2 Saturation 95 11/20/18 11/21/18 11/21/18 23:33 03:43 06:03 Temperature 36.9 C 36.4 C L 36.4 C L Heart Rate 77 Heart Rate [ 86 77 Brachial] Respiratory 16 20 20 Rate Blood Pressure Blood Pressure 152/85 H 155/89 H [Right Brachial artery] O2 Saturation 93 94 94 11/21/18 07:01 Temperature 36.4 C L Heart Rate Heart Rate [ 76 Brachial] Respiratory 16 Rate Blood Pressure Blood Pressure 165/97 H [Right Brachial artery] O2 Saturation 96 Oxygen O2 Source Room air I&O (Last 24 Hrs): Intake and Output Totals x24h 11/19/18 11/20/18 11/21/18 23:59 23:59 23:59 Intake Total 3369.167 2597.500 1005 Output Total 1705 1445 750 Balance 4169.984 3063.500 255 NG output 450/8 hours; u.o. ok 11/21/18 07:22 General: Alert, Oriented x3, Cooperative, Mild distress HEENT: Mucous membr. moist/pink Neck: Supple, No JVD Neuro: Alert Cardiovascular: Regular rate, Normal S1, Normal S2 Respiratory: Chest non-tender, No respiratory distress, Breath sounds nml Abdomen: Soft, No tenderness, No hepatospenomegaly, No masses, Other (hyperactive, tympanitic bowel sounds,) Extremities: No edema, No tenderness/swelling - Results Results: Laboratory Results WBC 9.7 x10^3/uL (4.8-10.8) 11/21/18 05:02 RBC 4.49 10^6/uL (4.20-5.40) 11/21/18 05:02 Hgb 12.0 g/dL (12.0-16.0) 11/21/18 05:02 Hct 38.6 % (37.0-47.0) 11/21/18 05:02 MCV 86.0 fL (81.0-99.0) 11/21/18 05:02 MCH 26.7 pg (27.0-31.0) L 11/21/18 05:02 MCHC 31.1 g/dL (32.0-36.0) L 11/21/18 05:02 RDW 13.7 % (12.0-15.0) 11/21/18 05:02 Plt Count 196 10^3/uL (130-450) 11/21/18 05:02 MPV 10.0 fL (7.9-10.8) 11/21/18 05:02 Neut # (Auto) 7.9 10^3/uL (1.5-6.6) H 11/21/18 05:02 Lymph # (Auto) 0.9 10^3/uL (1.5-3.5) L 11/21/18 05:02 [place] # (Auto) 0.9 10^3/uL (0.0-1.0) 11/21/18 05:02 Eos # (Auto) 0.0 10^3/uL (0.0-0.7) 11/21/18 05:02 Baso # (Auto) 0.0 10^3/uL (0.0-0.1) 11/21/18 05:02 Absolute Nucleated RBC 0.00 x10^3/uL 11/21/18 05:02 Nucleated RBC % 0.0 /100WBC 11/21/18 05:02 Sodium 138 mmol/L (135-145) 11/21/18 05:02 Potassium 3.8 mmol/L (3.5-5.0) 11/21/18 05:02 Chloride 100 mmol/L (101-111) L 11/21/18 05:02 Carbon Dioxide 30 mmol/L (21-32) 11/21/18 05:02 Anion Gap 8.0 (6-13) 11/21/18 05:02 BUN 14 mg/dL (6-20) 11/21/18 05:02 Creatinine 0.7 mg/dL (0.4-1.0) 11/21/18 05:02 Estimated GFR (MDRD) 87 (>89) L 11/21/18 05:02 Glucose 133 mg/dL (70-100) H 11/21/18 05:02 Calcium 9.0 mg/dL (8.5-10.3) 11/21/18 05:02 Total Bilirubin 1.0 mg/dL (0.2-1.0) 11/19/18 03:40 AST 26 IU/L (10-42) 11/19/18 03:40 ALT 19 IU/L (10-60) 11/19/18 03:40 Alkaline Phosphatase 57 IU/L (42-121) 11/19/18 03:40 Total Protein 6.8 g/dL (6.7-8.2) 11/19/18 03:40 Albumin 4.3 g/dL (3.2-5.5) 11/19/18 03:40 Globulin 2.5 g/dL (2.1-4.2) 11/19/18 03:40 Albumin/Globulin Ratio 1.7 (1.0-2.2) 11/19/18 03:40 Lipase 24 U/L (22-51) 11/19/18 03:40 Carcinoembryonic Ag 1.5 ng/mL 11/20/18 07:37 Urine Color YELLOW 11/19/18 12:02 Urine Clarity CLEAR (CLEAR) 11/19/18 12:02 Urine pH 6.5 PH (5.0-7.5) 11/19/18 12:02 Ur Specific [place] 1.010 (1.002-1.030) 11/19/18 12:02 Urine Protein NEGATIVE mg/dL (NEGATIVE) 11/19/18 12:02 Urine Glucose (UA) NEGATIVE mg/dL (NEGATIVE) 11/19/18 12:02 Urine Ketones 15 mg/dL (NEGATIVE) H 11/19/18 12:02 Urine Occult Blood TRACE-INTA (NEGATIVE) 11/19/18 12:02 Urine Nitrite NEGATIVE (NEGATIVE) 11/19/18 12:02 Urine Bilirubin NEGATIVE (NEGATIVE) 11/19/18 12:02 Urine Urobilinogen 0.2 (NORMAL) E.U./dL (NORMAL) 11/19/18 12:02 Ur Leukocyte Esterase NEGATIVE (NEGATIVE) 11/19/18 12:02 Ur Microscopic Review NOT INDICATED 11/19/18 12:02 Urine Culture Comments NOT INDICATED 11/19/18 12:02 ABX Reporting Has patient been on IV antibiotics over the past 48 hours?: No
[2018-11-21] MEDS: SODIUM CHLORIDE FLUSH 0.9% 10 ML SYRINGE IVP PRN ×2 (07:25→07:32)
[2018-11-21] MEDS ORDERED: ENOXAPARIN 30 MG/0.3 ML SYRINGE SUBQ SCH (09:00)
[2018-11-21] MEDS: CHLORHEXIDINE GLUCONATE 15 ML UDC PO SCH (09:56)
--- NOTE | 2018-11-21 10:43 | Discharge Plan ---
Discharge Plan Problem Reviewed?: Yes Disposition: 02 Transfer Acute Care Hosp Condition: Stable No Smoking: If you smoke, Please STOP! Call for help. Follow-up with: Provider,Other [Primary Care Provider] -
[2018-11-21 12:06] VITALS: BP 155/97
--- NOTE | 2018-11-27 14:57 | DISCHARGE SUMMARY ---
"Discharge Summary Admit Date: 11/19/18 Discharge Date: 11/21/18 Discharging Provider: Dr Tricia Retana Primary Care Provider: Unknown PCP in [place], [place] Code Status: Attempt Resuscitation Condition at Discharge: Stable Discharge Disposition: 02 Transfer Acute Care Hosp Discharge Facility Name: [facility] - DIAGNOSES Admission Diagnoses: 1) SBO 2) Hx of colon CA and prior surgeries Discharge Diagnoses with Status of Each Condition: See below - HPI History of Present Illness: From the admission H&P of Dr Toledo: Patient is a 58 y/o female with history of Stage IV colon cancer with metastasis to the liver 5yr ago s/p surgery, who presented with diffuse abd pain which started yesterday and steadily got worse. She had a protein bar sometime after onset but has since vomited everything. She has not had a bowel movement or passed gas. She denies chest pain or dyspnea. In the ED work up included a CT of the abd/pelvis which showed a SBO with a transition point. As a result she was admitted for further management. - CONSULTS | PROCEDURES Consultations: Dr Puneet Andersen Procedures: Gastrografin challenge with serial XRays. - HOSPITAL COURSE Hospital Course: (1) Small bowel obstruction This is likely secondary to adhesions given her history of multiple abdominal surgeries. She was started on IV antiemetics, pain control with IV opiates and toradol and IV fluids. She had an NG tube to suction and was npo. Initially her nausea and emesis improved slightly. She underwent a Gastrografin study and no contrast was visualized transiting. The next day, a plain KUB film showed still more distended, air-filled, dilated loops of bowel and she had passed no flatus or BMs. I reached out to have her transferred for higher level of care, as the General Surgeon felt her multiple previous abdominal surgeries would make her a complex surgical case, and she was accepted by the Hospitalist at [facility], where she was transferred by ambulance. (2) Hx of colon cancer, stage IV She has history of stage IV colon cancer with metastasis to the liver. She underwent resection in the past. Family reported recent MRI of the abdomen which was negative. - ALLERGIES Allergies/Adverse Reactions: Allergies Allergy/AdvReac Type Severity Reaction Status Date / Time No Known Drug Allergies Allergy Verified 11/19/18 03:43 - MEDICATIONS Home Medications: Ambulatory Orders Medication Instructions Recorded Confirmed No Known Home Medications 11/19/18 11/19/18 - PHYSICAL EXAM AT DISCHARGE General Appearance: positive: Mild distress Eyes Bilateral: positive: Normal inspection ENT: positive: Dry mucous membranes, Other (ng tube in place) Neck: positive: Nml inspection Respiratory: positive: No respiratory distress Cardiovascular: positive: Regular rate & rhythm Abdomen: positive: No distention, Other (Firm, no bowel sounds, no guarding or rebound.) Extremities: positive: No pedal edema - LABS Result Diagrams: 11/21/18 05:02 11/21/18 05:02 - DIAGNOSTIC IMAGING Diagnostic Imaging Results: Final report reviewed - FOLLOW UP Follow Up: Follow-up with usual PCP after discharge from [facility]. - TIME SPENT Time Spent in Discharge (Minutes): 30"
== END 2018-11-21 12:10 | disposition short-term general hospital (02) | DRG 390 ==
LOC: ED 03:35 → MS3 05:10
PROVIDERS: ADMIT Internal Medicine; ATTEND Internal Medicine
DX: K56.51 Intestinal adhesions [bands], with partial obstruction (principal); E86.9 Volume depletion, unspecified; Z90.49 Acquired absence of other specified parts of digestive tract; Z85.038 Personal history of other malignant neoplasm of large intestine; Z92.21 Personal history of antineoplastic chemotherapy
CPT/HCPCS: 36415; 74018; 74019; 74177; 74250; 80048; 80053; 81003; 82378; 83690; 85025; 96361; 96374; 96375; 99285; A9270; J0131; J1170; J1650; J3490; J7120; Q9963; Q9967; 81001; 87086